=== PATIENT | male | born 1955 | race Caucasian/White ===

== ENCOUNTER → 2017-02-16 | Outpatient (CLI) | payer MEDICARE, OTHER ==
[~2017-02-16] VITALS: Ht 188 cm; Wt 113.4 kg
[~2017-02-16] MED LIST: AVAP150T31 PO; CARI350T20 PO; HYDR-3713 PO; IBUP800T23 PO; NS 1,000 ML IV ONE; OMEP40CA2 PO; PROPOFOL 200 MG/20 ML VIAL As Ordered ONE
--- NOTE | 2017-02-16 08:14 | ROOR ---
Patient Name: Jorden Navarrete Procedure Date: 02/16/2017 7:59 AM Date of : 1955 Age: 61 Room: [facility] Gender: Male Note Status: Finalized Procedure: Upper GI endoscopy Indications: Heartburn Providers: Lokesh Mancia MD Referring MD: DEANNA ARNOLD JR, MD Requesting Provider: Medicines: Monitored Anesthesia Care Complications: No immediate complications. Procedure: Pre-Anesthesia Assessment: - The heart rate, respiratory rate, oxygen saturations, blood pressure, adequacy of pulmonary ventilation, and response to care were monitored throughout the procedure. The Endoscope was introduced through the mouth, and advanced to the second part of duodenum. The upper GI endoscopy was accomplished without difficulty. The patient tolerated the procedure well. Findings: The Z-line was regular and was found 40 cm from the incisors. No other significant abnormalities were identified in a careful examination of the stomach. The exam of the duodenum was otherwise normal. Impression: - Z-line regular, 40 cm from the incisors. - No specimens collected. - The examination was otherwise normal. Recommendation: - Patient has a contact number available for emergencies. The signs and symptoms of potential delayed complications were discussed with the patient. Return to normal activities tomorrow. Written discharge instructions were provided to the patient. - High fiber diet. - Discharge patient to home. - Continue present medications. - Return to referring physician. - The findings and recommendations were discussed with the patient's family. Lokesh Mancia MD Lokesh Mancia MD 02/16/2017 8:14:04 AM This report has been signed electronically. Number of Addenda: 0 Note Initiated On: 02/16/2017 7:59 AM Estimated Blood Loss: Estimated blood loss: none.
--- NOTE | 2017-02-16 08:28 | ROOR ---
Patient Name: Jorden Navarrete Procedure Date: 02/16/2017 8:00 AM Date of : 1955 Age: 61 Room: [facility] Gender: Male Note Status: Finalized Procedure: Total Colonoscopy to Cecum Indications: Last colonoscopy: 2008, Abdominal pain in the left lower quadrant, Rectal bleeding Providers: Lokesh Mancia MD Referring MD: DEANNA ARNOLD JR, MD Requesting Provider: Medicines: Monitored Anesthesia Care Complications: No immediate complications. Procedure: Pre-Anesthesia Assessment: - The heart rate, respiratory rate, oxygen saturations, blood pressure, adequacy of pulmonary ventilation, and response to care were monitored throughout the procedure. The Colonoscope was introduced through the anus and advanced to the cecum, identified by appendiceal orifice and ileocecal valve. The colonoscopy was performed without difficulty. The patient tolerated the procedure well. The quality of the bowel preparation was excellent. Findings: The perianal and digital rectal examinations were normal. Non-bleeding internal hemorrhoids were found during retroflexion. The hemorrhoids were small and Grade I (internal hemorrhoids that do not prolapse). Multiple small and large-mouthed diverticula were found in the recto-sigmoid colon, sigmoid colon and descending colon. The exam was otherwise without abnormality on direct and retroflexion views. Impression: - Non-bleeding internal hemorrhoids. - Diverticulosis in the recto-sigmoid colon, in the sigmoid colon and in the descending colon. - The examination was otherwise normal on direct and retroflexion views. - No specimens collected. - The exam was otherwise normal to the cecum. Recommendation: - Patient has a contact number available for emergencies. The signs and symptoms of potential delayed complications were discussed with the patient. Return to normal activities tomorrow. Written discharge instructions were provided to the patient. - High fiber diet. - Discharge patient to home. - Continue present medications. - Repeat colonoscopy in 10 years for screening purposes. - Return to referring physician. - The findings and recommendations were discussed with the patient's family. Lokesh Mancia MD Lokesh Mancia MD 02/16/2017 8:28:04 AM This report has been signed electronically. Number of Addenda: 0 Note Initiated On: 02/16/2017 8:00 AM Estimated Blood Loss: Estimated blood loss: none.
[2017-02-16 08:45] VITALS: BP 130/78
== END | disposition home or self-care (01) ==
LOC: M OPP 07:04
PROVIDERS: ATTEND Internal Medicine Gastroenterology
DX: R10.32 Left lower quadrant pain (principal); K62.5 Hemorrhage of anus and rectum; K57.30 Diverticulosis of large intestine without perforation or abscess without bleeding; K64.0 First degree hemorrhoids; R12 Heartburn; K44.9 Diaphragmatic hernia without obstruction or gangrene; K21.9 Gastro-esophageal reflux disease without esophagitis; I10 Essential (primary) hypertension; K57.92 Diverticulitis of intestine, part unspecified, without perforation or abscess without bleeding; Z86.010 Personal history of colon polyps; K22.70 Barrett's esophagus without dysplasia; M54.2 Cervicalgia; M51.9 Unspecified thoracic, thoracolumbar and lumbosacral intervertebral disc disorder; M25.60 Stiffness of unspecified joint, not elsewhere classified; M54.32 Sciatica, left side; R06.83 Snoring; E66.9 Obesity, unspecified; Z79.899 Other long term (current) drug therapy; Z80.51 Family history of malignant neoplasm of kidney

== ENCOUNTER 2017-04-01 19:55 | Emergency (ER) | payer MEDICARE, OTHER ==
[~2017-04-01] VITALS: Ht 188 cm; Wt 114.0 kg
[~2017-04-01 19:55] MED LIST changes: +CARI350T PO; -CARI350T20 PO; +IBUP1TAB7 PO; -IBUP800T23 PO; -NS 1,000 ML IV ONE; -PROPOFOL 200 MG/20 ML VIAL As Ordered ONE
[2017-04-01 19:57] VITALS: BP 169/81
[2017-04-01] MEDS ORDERED: CIPR-249 PO (23:44)
[2017-04-01] MEDS ORDERED: CIPROFLOXACIN 500 MG TAB PO ONE (23:45)
--- NOTE | 2017-04-02 08:37 | REPUSA ---
Clinical history: Pain. Findings: Real-time ultrasound imaging of the testicles and scrotum was performed. The right testicle measures 4.3 x 2.9 x 3.2 cm. The left testicle measures 4.3 x 2.6 x 3.3 cm. The testicles demonstra te normal echo texture and echogenicity. Detailed the right epididymis is thickened. There is a small cyst in the right epididymis measuring 5 mm. Normal color Doppler flow and arterial waveforms are se en bilaterally. No fluid collections are seen. Impression: 1. Unremarkable ultrasound examination of the testicles. 2. Right epididymal cyst. 3. Slight thickening of the tail of the right epididymis. This is a nonspecific finding, but early ep ididymitis cannot be excluded. Follow-up is suggested as clinically indicated.
== END 2017-04-01 23:57 | disposition home or self-care (01) ==
LOC: M ED 19:55
DX: N50.3 Cyst of epididymis (principal); N50.811 Right testicular pain; G89.29 Other chronic pain; I10 Essential (primary) hypertension; K21.9 Gastro-esophageal reflux disease without esophagitis; Z79.899 Other long term (current) drug therapy

== ENCOUNTER → 2017-04-23 | Outpatient (CLI) | payer MEDICARE, OTHER ==
[~2017-04-23] MED LIST changes: +BACT800T5 PO; +CIPR-249 PO; +TYLE650T35 PO
[2017-04-23 18:51] LABS: ANION GAP 9 MEQ/L (8-16); BLOOD UREA NITROGEN 16 MG/DL (7-18); CALCIUM LEVEL 9.3 MG/DL (8.8-10.2); CARBON DIOXIDE LEVEL 26 MEQ/L (21-32); CHLORIDE LEVEL 102 MEQ/L (98-107); CREATININE FOR GFR 1.08 MG/DL (0.70-1.30); GLOMERULAR FILTRATION RATE > 60.0 (>49); GLUCOSE, FASTING 88 MG/DL (80-110); POTASSIUM SERUM 4.8 MEQ/L (3.5-5.1); SODIUM LEVEL 137 MEQ/L (136-145)
[2017-04-23 19:34] LABS: MEAN CORPUSCULAR HEMOGLOBIN 32.9 pg (27.0-33.0); MEAN CORPUSCULAR HGB CONC 34.6 g/dl (32.0-36.5); MEAN CORPUSCULAR VOLUME 95.2 fl (80.0-96.0); RED CELL DISTRIBUTION WIDTH 12.1 % (11.5-14.5); WHITE BLOOD COUNT 3.7 K/mm3 (4.0-10.0)
[2017-04-25 08:12] LABS: HCG SERUM TUMOR MARKER QUANT < 1 mIU/mL (0-3); PSA TOTAL 2.2 ng/mL (0.0-4.0)
== END ==
LOC: M SMT 10:15
PROVIDERS: ATTEND Urology
DX: N50.819 Testicular pain, unspecified (principal); Z12.5 Encounter for screening for malignant neoplasm of prostate
CPT/HCPCS: 36415; 80048; 81001; 82105; 83615; 84154; 84702; 85027; 87086; G0463

== ENCOUNTER → 2017-05-10 | Outpatient (CLI) | payer MEDICARE, OTHER ==
[2017-05-10 13:58] LABS: INR 0.9
--- NOTE | 2017-05-10 15:13 | REP ---
PA and lateral chest: Comparison is 11/19/2006. The lung baez are clear. The cardiac size is normal The dane, mediastinum, and bony thorax are unremarkable. Impression: Negative PA and lateral chest. There is no interval change. Signed by Modesto Sherman MD 05/10/2017 08:47 A
== END ==
LOC: M SMT 08:23
PROVIDERS: ATTEND Urology
DX: N50.819 Testicular pain, unspecified (principal); Z01.818 Encounter for other preprocedural examination

== ENCOUNTER 2017-05-26 11:19 | Day surgery (SDC) | payer MEDICARE, OTHER ==
[~2017-05-26] VITALS: Ht 188 cm; Wt 111.1 kg
[~2017-05-26 11:19] MED LIST changes: -BACT800T5 PO; -TYLE650T35 PO
[2017-05-26] MEDS ORDERED: LR 1,000 ML IV ONE (11:30)
[2017-05-26] MEDS ORDERED: fentaNYL 250 MCG/5 ML INJECTION (J3010) As Ordered ONE (12:27)
[2017-05-26] MEDS ORDERED: MIDAZOLAM INJ 2 MG/2 ML VIAL (J2250) As Ordered ONE (12:27)
[2017-05-26] MEDS ORDERED: LIDOCAINE 2% INJ 100 MG/5 ML SDV (FOR ANES.) As Ordered ONE (12:27)
[2017-05-26] MEDS ORDERED: PROPOFOL 200 MG/20 ML VIAL As Ordered ONE (12:27)
[2017-05-26] MEDS ORDERED: BUPIVACAINE HCL 0.25% 30 ML VIAL As Ordered ONE (13:43)
[2017-05-26] MEDS ORDERED: ACETAMINOPHEN 650MG ER TAB (TYLENOL ARTHRITIS) PO SCH (14:00)
[2017-05-26] MEDS ORDERED: ONDANSETRON 4MG/2ML VIAL (J2405) As Ordered ONE (14:11)
[2017-05-26] MEDS ORDERED: KETOROLAC 60 MG/2 ML VIAL (J1885) As Ordered ONE (14:11)
[2017-05-26] MEDS ORDERED: dexameTHASONE 4 MG/ML 1ML VIAL (J1100) As Ordered ONE (14:11)
[2017-05-26] MEDS ORDERED: TYLE650T35 PO (15:15)
[2017-05-26] MEDS ORDERED: BACT800T5 PO (15:15)
[2017-05-26] MEDS ORDERED: BACITRACIN OINT 30GM As Ordered ONE (15:17)
[2017-05-26] MEDS ORDERED: fentaNYL 100 MCG/2 ML INJECTION (J3010) IV PRN (15:30)
[2017-05-26] MEDS ORDERED: PERCOCET 5MG/325MG TAB PO PRN (15:30)
[2017-05-26] MEDS ORDERED: MEPERIDINE INJ 25 MG/ML VIAL (J2175) IV PRN (15:30)
[2017-05-26] MEDS ORDERED: LR 1,000 ML IV SCH (15:30)
[2017-05-26] MEDS ORDERED: METOCLOPRAMIDE INJ 10MG/2ML VIAL (J2765) IV PRN (15:30)
[2017-05-26] MEDS ORDERED: ONDANSETRON 4MG/2ML VIAL (J2405) IV PRN (15:30)
[2017-05-26 16:20] VITALS: BP 146/77
[2017-05-26] MEDS ORDERED: BACTRIM 160MG/800MG DS TAB PO SCH (21:00)
--- NOTE | 2017-05-27 19:38 | RO ---
DATE OF PROCEDURE: 05/26/2017 PREPROCEDURE DIAGNOSIS: Right epididymal tumor. POSTPROCEDURE DIAGNOSIS: Right epididymal tumor. FINDINGS: Right epididymal tumor about 3 cm in diameter in the head of the epididymis. PROCEDURE: Right scrotal exploration plus right epididymectomy. SURGEON: Dr. Juancarlos Siegel DENTURE MODEL MAKER: None. ANESTHESIA: General. COMPLICATIONS: None. ESTIMATED BLOOD LOSS: N/A. HISTORY OF PRESENT ILLNESS: This is a 61-year-old male patient that has a solid tumor in the head of the epididymis. On ultrasound it shows to be a complex cyst. Tumor markers are negative. For this reason, the patient went for a trial of antibiotics which actually did not diminish the pain nor the size of the tumor. For this reason he has consented for a right scrotal exploration plus right epididymectomy. DESCRIPTION OF PROCEDURE: In a patient in supine position under general anesthesia after prepping and draping the area of concern, which included the entire genitalia and abdomen, we started by doing an incision in the right hemiscrotal area for about 4 cm in length, transverse. Through this incision with electro Bovie cautery, we opened the tunica vaginalis in a longitudinal fashion and everted the tunica vaginalis completely and secured hemostasis. We then proceeded to actively dissect the epididymis and did a formal epididymectomy. We secured hemostasis with electro Bovie cautery and tied the vas deferens with #3-0 chromic times two. We then proceeded to actively send specimen as epididymectomy and epididymal tumor for permanent pathology analysis right epididymectomy. We then secured hemostasis and dropped the testicle inside the scrotal sac after confirming that it had great flow with vascular Doppler which actually proved that he had good arterial flow and venous flow. We dropped the testicle inside the scrotal sac and closed the scrotum in two layers with a running fashion #3-0 chromic and skin in a running fashion also with #3-0 chromic. We placed bacitracin cream, fluffs and scrotal support. There were no complications. Patient will go home today with antibiotics and pain medication. Followup at [facility] in about 1-2 weeks.
== END 2017-05-26 16:35 | disposition home or self-care (01) ==
LOC: M SDC 11:19
PROVIDERS: ATTEND Urology
DX: N50.3 Cyst of epididymis (principal); I10 Essential (primary) hypertension; K57.32 Diverticulitis of large intestine without perforation or abscess without bleeding; K21.9 Gastro-esophageal reflux disease without esophagitis; K22.70 Barrett's esophagus without dysplasia; Z79.899 Other long term (current) drug therapy
CPT/HCPCS: 36415; 54860; 86850; 86900; 86901; 88304; J0690; J1100; J1885; J2250; J2405; J3010

== ENCOUNTER → 2020-04-05 | Outpatient (REF) | payer MEDICARE, OTHER ==
[~2020-04-05] MED LIST changes: +ACET650T61 PO; +BACT800T5 PO; +CARI1TAB7 PO; -CARI350T PO; -OMEP40CA2 PO; +OMEP40CA97 PO
== END ==
LOC: M LAB REF 15:40
PROVIDERS: ATTEND Physician Assistant
DX: Z03.818 Encounter for observation for suspected exposure to other biological agents ruled out (principal); Z11.59 Encounter for screening for other viral diseases

== ENCOUNTER → 2020-05-13 | Outpatient (REF) | payer MEDICARE, OTHER | LOC: M LAB REF 11:28 | PROVIDERS: ATTEND Physician Assistant Medical | DX: Z03.818 Encounter for observation for suspected exposure to other biological agents ruled out (principal); Z11.59 Encounter for screening for other viral diseases ==

== ENCOUNTER → 2021-09-01 | Outpatient (REF) | payer MEDICARE, OTHER ==
[~2021-09-01] MED LIST changes: +OMEP40CA4 PO; -OMEP40CA97 PO
== END ==
LOC: M LAB REF 11:25
PROVIDERS: ATTEND Internal Medicine
DX: Z83.71 Family history of colonic polyps (principal)

== ENCOUNTER → 2022-04-24 | Outpatient (REF) | payer MEDICARE, OTHER ==
[2022-04-24 17:49] LABS: APPEARANCE, URINE CLEAR (CLEAR); BACTERIA, URINE AUTO NEGATIVE (NEGATIVE); BILIRUBIN, URINE AUTO NEGATIVE (NEGATIVE); BLOOD, URINE BLOOD 1+ (NEGATIVE); COLOR, URINE YELLOW (YELLOW); GLUCOSE, URINE (UA) AUTO NEGATIVE (NEGATIVE); KETONE, URINE AUTO NEGATIVE (NEGATIVE); LEUKOCYTE ESTERASE, URINE AUTO TRACE (NEGATIVE); NITRITE, URINE AUTO NEGATIVE (NEGATIVE); PROTEIN, URINE AUTO NEGATIVE (NEGATIVE); RBC, URINE AUTO 1 /HPF (0-3); SQUAMOUS EPITHELIAL CELL UR AU 0 /HPF (0-6); UROBILINOGEN, URINE AUTO 0.2 mg/dL (0.0-2.0); WBC, URINE AUTO 4 /HPF (0-3)
== END ==
LOC: M LAB REF 16:14
PROVIDERS: ATTEND Physician Assistant
DX: N39.0 Urinary tract infection, site not specified (principal); M79.10 Myalgia, unspecified site

== ENCOUNTER → 2023-01-01 | Outpatient (CLI) | payer MEDICARE, OTHER ==
[~2023-01-01] MED LIST changes: +GASTROGRAFIN SOLUTION 30ML As Ordered ONE; +ISOVUE-370 76% 100ML VIAL As Ordered ONE
== END ==
LOC: M RAD 07:50
PROVIDERS: ATTEND Nurse Practitioner Family
DX: R10.30 Lower abdominal pain, unspecified (principal)
CPT/HCPCS: 74177; Q9963; Q9967